=== PATIENT | female | born 1990 | race Caucasian/White ===

== ENCOUNTER → 2022-04-09 | Outpatient (CLI) | payer OTHER ==
[~2022-04-09] MED LIST: IBU800 M1 PO; PRENATAL TABLET PO
--- NOTE | 2022-04-09 15:15 | NUR ---
Pt, Chanel Schafer, presents to walk-in clinic with 14 day day old baby boy, Kush Swanson, and her SO Mike Swanson. They were seen two days ago at clinic. Kush was born on [birth year] and weighed 8# 7.8oz (3850 gms). Two days ago he weighed 7# 13.8oz (3566 gms). He transfered 46ml from . Pt was advised to breastfeed, supplement 1-2oz EBM each feeding, and pump each feeding. Pt has followed this plan, collecting 0.75-1oz per feeding, which is what is then supplemented to him. Today Kush weighs 7# 14.3oz (3580 gms), for a gain of 0.5oz over 2 days. Voids and stools 4+ and 4 respectively daily. After at this clinic Kush had a gain of 28 gms (1 oz). Impression: Low milk supply. Possible sublingual tether. POC: Continue 3-step plan with breast, bottle, pumping. Increase supplement to 2oz per meal, EBM and formula as needed to get improved weight gain. Pt advised on additional pumping stratagies and herbal supplements that may assist in getting milk supply up. F/U: Walk-in clinic in 5 days. Questions invited and answered.
== END ==
LOC: LAC 13:17
DX: Z39.1 Encounter for care and examination of lactating mother (principal); Z71.89 Other specified counseling

== ENCOUNTER → 2022-04-14 | Outpatient (CLI) | payer OTHER ==
--- NOTE | 2022-04-14 16:12 | NUR ---
Pt, Chanel Schafer, presents to walk-in clinic with 3 week old baby boy, Kush Swanson, and his dad, Mike Swanson. Kush was born on [birth year] and weighed 8# 7.8oz. On 04/07/22 Kush was brought to clinic and he weighed 7# 13.8oz (3566 gms). Low milk supply was suspected and they were advised to breastfeed, pump and supplement ~1oz per feeding. Two days later Kush was seen at clinic again and weighed 7# 14.3oz (3581 gms). They were advised to increase supplement to 2oz per meal, continue pumping and follow up today. Today Kush weighs 8# 10.5oz (3926 gms), for a gain of 12.2oz over 5 days. Pt continues to pump and collects about 1oz per feeding so they are supplementing 50% BM to 50% formula. While today Kush has a void that leaks out of the diaper so pre and post feed weights are skewed. He shows a total gain of 12gms with an unkown loss from the void. After Kush is fed ~2oz EBM/formula. Based on known supplement ration and weight gain, it is estimated pt is making about 2/3 of his intake needs at this time. LC does suck evaluation, he holds the gloved finger in his mouth better than last week, but it does slip some times. While at the breast he seems to let the nipple slip out as well, and needs relatched or adjusted to keep a deep latch. POC: Continue current feeding plan, increase herbal supplement as allow on product label. F/U: Walk in clinic 2 or 7 days from now. Questions invited and answered.
== END ==
LOC: LAC 14:20
DX: Z39.1 Encounter for care and examination of lactating mother (principal); Z71.89 Other specified counseling